=== PATIENT | female | born 1965 | race Caucasian/White ===

== ENCOUNTER 2016-11-04 06:11 | Day surgery (SDC) | payer OTHER ==
[2016-10-27 08:53] LABS: BASOPHILS 0.5 %; BASOPHILS ABSOLUTE 0.03 10/3/uL (0.0-0.16); EOSINOPHILS 1.1 %; EOSINOPHILS ABSOLUTE 0.07 10/3/uL (0.0-0.53); HEMOGLOBIN 15.1 g/dL (12.0-16.0); IMMATURE GRANULOCYTES 0.6 %; IMMATURE GRANULOCYTES ABSOLUTE 0.04 10/3/uL (0.0-0.11); LYMPHOCYTES 18.5 %; LYMPHOCYTES ABSOLUTE 1.16 10/3/uL (0.67-4.30); MANUAL DIFF NO %; MEAN CORPUS HGB CONC 33.6 g/dL (32.0-36.0); MEAN CORPUSCULAR HEMOGLOB 29.4 pg (26.0-34.0); MEAN CORPUSCULAR VOLUME 87.5 fL (80-100); MEAN PLATELET VOLUME 9.3 fL (9.2-13.0); MONOCYTES 4.9 %; MONOCYTES ABSOLUTE 0.31 10/3/uL (0.21-1.20); NEUTROPHILS 74.4 %; NEUTROPHILS ABSOLUTE 4.67 10/3/uL (2.02-8.40); PLATELET COUNT 212 10/3/uL (150-400); RBC DISTRIBUTION WIDTH 14.2 % (12.0-16.0); RED CELL COUNT 5.14 10/6/uL (4.0-5.6); WHITE BLOOD CELLS 6.3 10/3/uL (4.5-10.5)
[2016-10-27 09:04] LABS: INTERNATIONAL NORMAL RATI 1.1 UNITS (-); PARTIAL THROMBO TIME 29.2 SEC (22.5-37.2); PROTIME (NOT ORD) 14.2 SEC (12.0-14.5)
[2016-10-27 09:07] LABS: CALCIUM, SERUM 8.9 MG/DL (8.5-10.4); CHLORIDE, SERUM 108 MMOL/L (96-112); CREATININE 0.73 MG/DL (0.55-1.02); GFR AFRICAN AMERICAN 112 ML/MIN (>=60); GFR NON AFRICAN AMERICAN 97 ML/MIN (>=60); GLUCOSE, SERUM 77 MG/DL (60-99); SODIUM, SERUM 144 MMOL/L (135-148)
[2016-10-27 09:08] LABS: BUN (BLOOD UREA NITROGEN) 16 MG/DL (6-23); CO2 (CARBON DIOXIDE) 30 MMOL/L (24-34)
[2016-10-27 09:12] LABS: PFA (COL/EPI) 91 SEC (72-180)
--- NOTE | ~2016-11-04 | OP ---
Record Of Operation [facility] [address] [place]. [address] NAME: MOY WINKLER : 69 STATUS : [facility]#: [id number] AGE: 51 ADM/REG DATE : 11/04/16 MR#: [id number] REPORT SERV DATE: 11/04/16 DICTATED BY: RICHARDSON KING DATE: 11/04/16 REPORT STATUS : Draft TRANSCRIBED BY: JARON DATE: 11/04/16 DATE OF PROCEDURE: 11/04/2016 PREOPERATIVE DIAGNOSIS: Personal history of breast cancer with a BRCA mutation. POSTOPERATIVE DIAGNOSIS: Personal history of breast cancer with a BRCA mutation. PROCEDURE: 1. Laparoscopic hysterectomy with bilateral salpingo-oophorectomy via the da Ibeth laparoscopic robotic instrument, CPT code 53408. 2. Extensive lysis of adhesions, CPT code 73698. 3. Repair of bilateral inguinal hernias laparoscopically, CPT code 24604. ESTIMATED BLOOD LOSS: 50 mL. FLUIDS IN: 1200 mL of crystalloid. COMPLICATIONS: None. FINDINGS AND INDICATIONS: This is a 51-year-old female who has a personal history of breast cancer, who has been treated with bilateral mastectomy. She has been taken to the operating room for exchange of her tissue expanders and placement of implants. She was also noted to have a BRCA mutation and is therefore having laparoscopic hysterectomy BSO. She is noted to have bilateral inguinal hernias with a significant amount of the descending colon in one of the hernias. The descending colon was removed, which required extensive lysis of adhesions encompassing greater than 50% of the entire operative time. Once the adhesions were taken down, both hernias were repaired with a running stitch of #1 PDS V-Loc. Both ovaries appeared to be normal bilaterally. There was no gross evidence of tumor. Postprocedure, a cystoscopy was performed with excellent bilateral ureteral jets. No evidence of bladder defect. Prior to the induction of anesthesia, the patient was treated with Lovenox for DVT prophylaxis as well as antibiotics. PROCEDURE IN DETAIL: The patient was taken to the operating room, where she was placed in supine position for administration of general anesthesia. She was then placed in dorsal lithotomy position and prepped and draped in usual sterile fashion. A ANTHONY uterine manipulator was placed through the uterine cervix and out the fundus, and a MICHAEL ring was sutured to the patient's cervix. Our attention was then turned towards the anterior abdominal wall where an incision was made approximately 25 cm above the pubic symphysis and taken down to the underlying layer of fascia. The fascia was grasped with two sutures of 0 Vicryl, tented up, and entered sharply. The peritoneum was then tented up and entered sharply, and a laparoscopic trocar was placed under direct visualization. The abdominal cavity was insufflated with CO2. Two additional 8 mm trocars were placed, one additional 12 mm trocar was placed. The patient was then docked the laparoscopic robotic instrument and remainder of the procedure was performed via the da Ibeth. The above findings were noted. Pelvic washings were taken. Again, there was a significant hernia noted on the left inguinal ligament and the descending colon was in this hernia. A significant amount of Record Of Operation [address] [address] NAME: MOY WINKLER : 69 STATUS : [facility]#: [id number] AGE: 51 ADM/REG DATE : 11/04/16 MR#: [id number] REPORT SERV DATE: 11/04/16 DICTATED BY: RICHARDSON KING DATE: 11/04/16 REPORT STATUS : Draft TRANSCRIBED BY: MODL DATE: 11/04/16 lysis of adhesions was required encompassing greater than 50% of the entire time to remove these adhesions. It was performed sharply and cautery was used to obtain excellent hemostasis. Once the adhesions were displaced, the hysterectomy was performed. At the completion of the procedure, both inguinal hernias on the left and right were repaired using a running stitch of #1 PDS V-Loc where the fascia was reapproximated. The retroperitoneal spaces were opened. The ureter and pelvic vessels were clearly identified. The round ligaments were cauterized and transected bilaterally. The gonadal vessels were isolated. Hemoclips were placed to ensure long-term hemostasis. They were then coagulated and transected bilaterally. The uterine arteries were identified at their origin and hemoclips were placed to ensure long-term hemostasis. Anteriorly, a bladder flap was created and taken down to a level well below the cervix. The uterine arteries were then skeletonized at the level of the cervix, grasped with bipolar cautery, cauterized and transected bilaterally. The uterosacral cardinal ligaments were then taken down with unipolar cautery, and a circumferential incision was made around the cervix and vagina and the uterus, tubes, ovaries, and cervix were delivered through the vagina with the above findings noted. The vaginal cuff was then closed with a running stitch of #1 PDS V-Loc and again both the left and right inguinal hernias where the fascia was reapproximated using a running stitch of #1 PDS V-Loc. At the completion of the procedure, the pelvis was irrigated with copious amounts of warm water. All pedicles were inspected and found to be hemostatic. The laparoscopic instruments were removed. The gas was expelled from the abdomen. Both the initial laparoscopic site and the 12 mm port were closed with 0 Vicryl at the fascia. The remainder of the sites were closed with 4-0 Vicryl at the skin and Dermabond was placed. Postprocedure, a cystoscopy was performed with excellent bilateral ureteral jets. No evidence of bladder defect. At the completion of the procedure, Dr. Kaur and his team came in to exchange the tissue expanders for implants. Please see his note for those details. DANNY/MODL Richarsdon King M.D. / [id number] CC: Jacinto Constantino AZHAR S.
--- NOTE | ~2016-11-04 | OP ---
Record Of Operation [facility] [address] [place]. [address] NAME: MOY WINKLER : 69 STATUS : [facility]#: [id number] AGE: 51 ADM/REG DATE : 11/04/16 MR#: [id number] REPORT SERV DATE: 11/05/16 DICTATED BY: BALA KAUR DATE: 11/05/16 REPORT STATUS : Draft TRANSCRIBED BY: JARON DATE: 11/05/16 DATE OF PROCEDURE: 11/04/2016 PREOPERATIVE DIAGNOSIS: Surgical absence of the breast. POSTOPERATIVE DIAGNOSIS: Surgical absence of the breast. PROCEDURE: Bilateral implant exchange to definitive silicone implant. INDICATIONS AND FINDINGS OF THE PROCEDURE: This middle-aged female presents with a surgical absence of the breast. She is appropriate for tissue director medicare sales exchange to definitive silicone implants. DETAILS OF THE PROCEDURE: The patient was brought to the operating room after adequate sedation was achieved, she subsequently underwent a gynecologic surgery per Dr. Ward. With this completed, then she was re-prepped for our intervention. Using markings placed in preoperative holding area, attention was turned to the right breast. An inframammary crease excision was then used excising her old mastectomy scar. Dissection was carried down to the level of the tissue director medicare sales. This was ruptured and removed. Inspection of the pocket was then carried out. Both inframammary crease and a lateral popcorn capsulorrhaphies were performed with the Bovie at high heat level. With this completed, she was thoroughly irrigated with Hibiclens solution, inferior drain was placed, and then a 620 MH implant was placed into the site. This was manipulated into an appropriate position and this was carried out over a 10-Barbadian drain. She was then closed with multiple layers of Vicryl and Monocryl through to an intracuticular in the skin. Our attention was turned contralaterally where a similar procedure was carried out. Again, inframammary crease incision was made. Dissection was carried down to the level of the implant. The implant was ruptured removed. Capsulorrhaphies were carried out with the Bovie as a heater probed and inferior drain was placed. She was thoroughly irrigated with Hibiclens solution, and the wounds were then closed with multiple layers of Vicryl and Monocryl through to an intracuticular in the skin. She was cleansed with peroxide. Light dressings were placed and she was remanded to the recovery room in stable condition. All sponge and needle counts were correct. DREW/JARON Bala Kaur M.D. / [id number] CC: Jacinto Constantino AZHAR S.
[~2016-11-04 06:11] MED LIST: ACET500CAP PO; AT25 PO; ATV1 PO; CALCIUM/MAG/ZINC PO; FLONASE NAS; K500 PO; MULTIVIT/MIN PO; NAP500 PO; OSTEO BI-FLEX1 EACH PO; PERCOCET1 TA2 PO; ROLAIDS PO; SINGULAIR1 PO; ZYRTEC ALLGY10 MG PO
== END 2016-11-04 17:02 | disposition home or self-care (01) ==
LOC: SDC 06:11
PROVIDERS: Obstetrics & Gynecology Gynecologic Oncology; Surgery Surgery of the Hand
PROC: 0HRV0JZ Replacement of Bilateral Breast with Synthetic Substitute, Open Approach (ICD-10-PCS; 2016-11-04)
PROC: 0UT94ZZ Resection of Uterus, Percutaneous Endoscopic Approach (ICD-10-PCS; 2016-11-04)
PROC: 0UTC4ZZ Resection of Cervix, Percutaneous Endoscopic Approach (ICD-10-PCS; 2016-11-04)
PROC: 0UT24ZZ Resection of Bilateral Ovaries, Percutaneous Endoscopic Approach (ICD-10-PCS; 2016-11-04)
PROC: 0UT74ZZ Resection of Bilateral Fallopian Tubes, Percutaneous Endoscopic Approach (ICD-10-PCS; 2016-11-04)
PROC: 0YQA4ZZ Repair Bilateral Inguinal Region, Percutaneous Endoscopic Approach (ICD-10-PCS; 2016-11-04)
PROC: 0HPU0JZ Removal of Synthetic Substitute from Left Breast, Open Approach (ICD-10-PCS; principal; 2016-11-04 07:30)
PROC: 0HPT0JZ Removal of Synthetic Substitute from Right Breast, Open Approach (ICD-10-PCS; 2016-11-04 07:30)
DX: Z42.1 Encounter for breast reconstruction following mastectomy (principal); N80.0 Endometriosis of uterus; K40.20 Bilateral inguinal hernia, without obstruction or gangrene, not specified as recurrent; Z88.0 Allergy status to penicillin; Z88.8 Allergy status to other drugs, medicaments and biological substances; Z85.3 Personal history of malignant neoplasm of breast; Z90.13 Acquired absence of bilateral breasts and nipples; Z98.890 Other specified postprocedural states
CPT/HCPCS: 11970 ×2; 36415; 49650 ×2; 58571; 71020; 80048; 84703; 85025; 85576; 85610; 85730; 86850; 86900; 86901; 88112; 88307; 93005; C1789; J0694; J1170; J2250; J2405; J2710; J2795; J3010; A9270-GY; C1769